=== PATIENT | male | born 1965 | race Caucasian/White ===

== ENCOUNTER 2020-02-27 12:37 | Day surgery (SDC) | payer MEDICAID, SELFPAY ==
[2020-02-21 14:11] VITALS: BMI 27.1
[2020-02-27 13:16] VITALS: BP 122/50; PULSE 54; RESP 18; TEMP 36.3; O2SAT 97
--- NOTE | 2020-02-27 13:45 | HMH.ANESCL ---
[facility] Anesthesia Checklist - Patient Identification Patient Identification: Arm Band, Verbal (Name & ) - Structural Data Admitted From: Home Planned Operative Procedure/s: none Consent for Planned Operative Procedure(s) Verified: Yes - NPO Status Verified Time NPO: 00:00 - Additional verifications Patient : No Anesthesia Reactions: No Hx Blood Transfusions: No Blood Transfusion Reaction: No Cephalosporin Allergy: No Previous Colonoscopy: Yes - Cardiovascular Assessment Heart Sounds: S1 & S2 Pulse Strength: Baseline Pulse Rhythm: Regular Peripheral Edema: Yes - Airway Assessment C-Spine Mobility Assessed: Yes TMJ Mobility Assessed: Yes Dentition: Good Dentition - Neurological Assessment Level of Consciousness: Awake, Alert, Appropriate Hx Seizures: No Numbness or tingling in extremities: No - Anesthesia Plan Anesthesia Risk discussed: Yes Anesthesia Plan: Verified ASA Class: II Anesthesia Type: MAC [facility] History Medical History: Denies:: Cancer, Diabetes Mellitus Type 1, Diabetes Mellitus Type 2, Internal Pacemaker, MRSA, Seizures *Have you ever received a pneumonia vaccine?: No *Have you received a flu vaccine this season?: No Anesthesia experience/problems:: none Other Surgeries: No: Pacemaker Amputation: No Fractures: No - *Social History Last grade of school completed: Advanced degree Smoking Status: Never smoker Alcohol Intake: never Substance Use Type: other *Occupational Status:: employed Housing: house Household Members: spouse *Travel in the last 8 weeks: None Family Hx:: Cancer
[2020-02-27 13:54] LABS: Coronavirus 19 IgG Antibody Negative (Negative); Coronavirus 19 IgM Antibody Negative (Negative)
[2020-02-27 14:14] VITALS: O2SAT 99
--- NOTE | 2020-02-27 14:40 | HMH.PROC ---
[facility] Procedure Note Procedure Note:: Colonoscopy Procedure Report: Colonoscopy with snare polypectomy Endoscopist: Brayan Alejandra II, MD Referring physician: None Date of Procedure: February 27, 2020 Equipment: Olympus 180 variable stiffness pediatric colonoscope Sedation: MAC sedation Indication: Mr. Orellana is a 54-year-old gentleman with a very strong family history of colon cancer. He is here for high risk surveillance colonoscopy. His mother had advanced metastatic colon cancer initially diagnosed at the age of 63. Also his paternal grandfather had colon cancer. The patient had been undergoing surveillance colonoscopy at a 3-year interval. He has had an inverted appendix. The patient previously did have a hypertrophied anal papilla. His last colonoscopy in February 2014 was normal. He reports no abdominal pain, weight loss, change in his bowel habits or rectal bleeding. The patient does take Konsyl fiber supplementation daily. Procedure: Prior to the procedure, a history and physical exam was performed, and patient's medications and allergies were reviewed. The risks, benefits and alternatives of the sedation and procedure were discussed with the patient. All questions were answered and informed consent was obtained. The patient was brought to the procedure room. Patient identification and proposed procedure were verified by the physician and the nurse. The patient was placed in a left lateral decubitus position and the scope was passed under direct vision. Throughout the procedure, the patient's blood pressure, pulse, and oxygen saturations were monitored continuously. The colonoscopy was accomplished without difficulty. The patient tolerated the procedure well. Findings: On digital rectal examination there was normal rectal tone. There were no external hemorrhoids. The colonoscope was introduced through the anal canal to the rectum and advanced to the cecum. The ileocecal valve and appendiceal orifice were identified. The scope was advanced a short distance into the ileum which appeared grossly normal. The scope was then withdrawn into the colon. 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 This was entirely removed via snare cautery. The site of removal was closed with a single Endo Clip. The remaining cecum, ascending, transverse, descending, sigmoid and rectum were grossly normal. There were no other mucosal abnormalities identified. Upon retroflexion within the rectum there were grade 1-2 internal hemorrhoids.The preparation was fair to good throughout with [place] Preparation Score of 7 out of 9. The cecal time was 10 minutes. Impression: 1. Inverted appendix 2. Normal colonoscopy with intubation of the terminal ileum 2. Grade 1-2 internal hemorrhoids Plan: Based upon the patient's family history, I would continue surveillance at a 5-year interval. I would continue bulk fiber supplementation with Konsyl on a daily basis. I will follow-up the appendiceal pathology to exclude any underlying inflammation.
[2020-02-27 14:41] VITALS: BP 98/52; PULSE 64; RESP 12; TEMP 36.5; O2SAT 92
[2020-02-27 14:51] VITALS: BP 95/51; PULSE 60; RESP 16; O2SAT 93
[2020-02-27 15:01] VITALS: BP 100/57; PULSE 57; RESP 16; O2SAT 95
[2020-02-27 15:11] VITALS: BP 112/70; PULSE 52; RESP 16; TEMP 36.5; O2SAT 95
== END 2020-02-27 15:18 | disposition home or self-care (01) ==
PROVIDERS: Visit Provider Internal Medicine Gastroenterology
PROC: 0DJD8ZZ Inspection of Lower Intestinal Tract, Via Natural or Artificial Opening Endoscopic (ICD-10-PCS; CPT 45378; principal; 2020-02-27 14:00)
DX: Z12.11 Encounter for screening for malignant neoplasm of colon (principal); Z80.0 Family history of malignant neoplasm of digestive organs; K38.8 Other specified diseases of appendix; K64.0 First degree hemorrhoids
CPT/HCPCS: 45385; 36415; 86328